=== PATIENT | female | born 1975 | race Caucasian/White ===

== ENCOUNTER 2017-07-18 19:05 | Emergency (ER) | payer OTHER ==
--- NOTE | 2017-07-18 19:43 | CPEKG ---
Heart Rate: 91 RR Interval: 659 P-R Interval: 156 QRSD Interval: 86 QT Interval: 388 QTC Interval: 478 P [place]: 74 QRS [place]: 79 T Wave [place]: 10 EKG Severity - OTHERWISE NORMAL ECG - EKG Impression: SINUS RHYTHM EKG Impression: ATRIAL PREMATURE COMPLEX EKG Impression: MINIMAL ST DEPRESSION, DIFFUSE LEADS Electronically Signed By: Mckenna Ellis 19-Jul-2017 18:15:19
[2017-07-18 20:02] LABS: PLATELET COUNT 303 10^3/uL (150-400)
[2017-07-18] MEDS ORDERED: NS 1,000 ML IV ONE (20:05)
--- NOTE | 2017-07-18 20:09 | EDPHY ---
HPI/HX/ROS/PE/MDM Narrative: CHIEF COMPLAINT: Heart palpitations, feeling faint HPI: The patient is a 41 y/o female complaining of heart palpitations. She describes the palpitations as feeling like her heart is skipping a beat. She has experienced this before, though it is usually one or two palpitations. Today , around 5:30 PM, she began experiencing palpitations, which persisted for an hour. She had associated pain in her back and faint feeling. She denies syncope , shortness of breath, or any other associated symptoms. She denies family history of cardiac conditions. She is from [place] and arrived [place], 5 days ago but reports being at altitude previously. She has had 2 cups of coffee and 2 cups of tea today but reports this is a normal amount of caffeine for her. She takes muscle relaxants at night for muscle spasms. REVIEW OF SYSTEMS: Aside from elements discussed in the HPI, a comprehensive 10-point review of systems was reviewed and is negative. 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 ENT:Eyes are normal to inspection. ENT inspection normal. Neck: Normal inspection. Full range of motion. Respiratory:No respiratory distress. Breath sounds normal bilaterally. Cardiovascular: Regular rate and rhythm. Strong peripheral pulses. Normal cap refill. Abdomen:The abdomen is nontender to palpation. There are no peritoneal signs. There are normal bowel sounds. Back: Normal to inspection. No tenderness to palpation. Skin: Normal color. No rash. Warm and dry. Extremities: Normal appearance. Full range of motion. Neuro: Oriented x3. Normal motor function. Normal sensory function. ED Course: The patient presents with heart palpitations lasting 1 hour. She denies chest pain or shortness of breath. Her EKG shows one premature atrial contraction but is otherwise not concerning. Plan for TSH, CBC, basic metabolic panel, beta HCG and 1 L NS fluid. 8:30 PM- The patient's labs are unremarkable. I have evaluated her security monitor strip which shows only sinus rhythm while she has been here. I reassessed the patient and informed her of the results of her workup. I feel she can safely leave. She agrees to this course of action. - Data Points Laboratory Results: Laboratory Results 07/18/17 19:46 07/18/17 19:46 07/18/17 07/18/17 07/18/17 19:46 19:46 19:46 WBC 8.77 10^3/uL 10^3/uL (3.80-9.50) RBC 4.25 10^6/uL 10^6/uL (4.18-5.33) Hgb 13.9 g/dL g/dL (12.6-16.3) Hct 40.2 % % (38.0-47.0) MCV 94.6 fL fL (81.5-99.8) MCH 32.7 pg pg (27.9-34.1) MCHC 34.6 g/dL g/dL (32.4-36.7) RDW 11.9 % % (11.5-15.2) Plt Count 303 10^3/uL 10^3/uL (150-400) MPV 10.3 fL fL (8.7-11.7) Neut % (Auto) 51.1 % % (39.3-74.2) Lymph % (Auto) 38.2 % % (15.0-45.0) [place] % (Auto) 8.9 % % (4.5-13.0) Eos % (Auto) 0.8 % % (0.6-7.6) Baso % (Auto) 0.8 % % (0.3-1.7) Nucleat RBC Rel Count 0.0 % % (0.0-0.2) Absolute Neuts (auto) 4.48 10^3/uL 10^3/uL (1.70-6.50) Absolute Lymphs (auto) 3.35 10^3/uL H 10^3/uL (1.00-3.00) Absolute Monos (auto) 0.78 10^3/uL 10^3/uL (0.30-0.80) Absolute Eos (auto) 0.07 10^3/uL 10^3/uL (0.03-0.40) Absolute Basos (auto) 0.07 10^3/uL 10^3/uL (0.02-0.10) Absolute Nucleated RBC 0.00 10^3/uL 10^3/uL (0-0.01) Immature Gran % 0.2 % % (0.0-1.1) Immature Gran # 0.02 10^3/uL 10^3/uL (0.00-0.10) Sodium 141 mEq/L mEq/L (135-145) Potassium 3.5 mEq/L mEq/L (3.3-5.0) Chloride 105 mEq/L mEq/L (97-110) Carbon Dioxide 21 mEq/l L mEq/l (22-31) Anion Gap 15 mEq/L mEq/L (8-16) BUN 7 mg/dL mg/dL (7-23) Creatinine 0.7 mg/dL mg/dL (0.6-1.0) Estimated GFR > 60 Glucose 91 mg/dL mg/dL (70-100) Calcium 9.5 mg/dL mg/dL (8.5-10.4) TSH Pending Beta HCG, Qual NEGATIVE Medications Given: Discontinued Medications Sodium Chloride (Ns) 1,000 mls @ 0 mls/hr IV EDNOW ONE; Wide Open PRN Reason: Protocol Stop: 07/18/17 20:06 Last Admin: 07/18/17 20:13 Dose: 1,000 mls General Time Seen by Provider: 07/18/17 19:36 Initial Vital Signs: Initial Vital Signs Temperature (C) 36.4 C 07/18/17 19:27 Heart Rate 94 07/18/17 19:27 Respiratory Rate 18 07/18/17 19:27 Blood Pressure 160/103 H 07/18/17 19:27 O2 Sat (%) 99 07/18/17 19:27 O2 Delivery Mode Room Air Allergies/Adverse Reactions: No Known Allergies Allergy (Unverified 07/18/17 19:30) Home Medications: Medication Instructions Recorded Xanax 07/18/17 Departure - Departure Disposition: Home, Routine, Self-Care Clinical Impression: Heart palpitations Condition: Good Instructions: Heart Palpitations (ED) Additional Instructions: 1. Follow up with your primary care provider for continued episodes of heart palpitations. 2. Return to the emergency department for shortness of breath, chest pain, or other worsening of condition. Referrals: Linda Moon MD [Medical Doctor] - As per Instructions Report Scribed for: Juan Antonio Mcdaniel Report Scribed by: Silvana Barrera Date of Report: 07/18/17 Time of Report: 20:10 Physician Review and Approval Statement: Portions of this note were transcribed by an ED scribe. I personally performed the history, physical exam, and medical decision making; and confirm the accuracy of the information in the transcribed note.
[2017-07-18 20:52] VITALS: BP 141/94
== END 2017-07-18 20:52 | disposition home or self-care (01) ==
DX: R00.2 Palpitations (principal); E86.9 Volume depletion, unspecified